=== PATIENT | male | born 1990 | race Caucasian/White ===

== ENCOUNTER 2016-12-27 13:31 | Day surgery (SDC) | payer OTHER ==
[~2016-12-27] VITALS: Ht 175.3 cm; Wt 81.7 kg
[~2016-12-27 13:31] MED LIST: 0.9% Sodium Chloride 1,000 ML IV PRN; HYDR25TA4 PO; LISI40TA PO; NAPR500T PO; OMEP40CA36 PO; SUCR1TAB30 PO; Sodium Chloride LOK Flush 10 mL Syringe IV PRN; fentaNYL-PF 50 mCg/mL 2 mL Inj IVPUSH PRN
[2016-12-27] MEDS ORDERED: Propofol 10,000 mCg/mL 20 mL Inj ONE (13:32)
[2016-12-27] MEDS ORDERED: Lidocaine PF 1% 30 mL Inj ONE (13:32)
[2016-12-27 14:57] VITALS: BP 129/77; PULSE 59; RESP 14; O2SAT 98
[2016-12-27] MEDS ORDERED: Lactated Ringer's 1,000 ML IV SCH (15:24)
[2016-12-27] MEDS ORDERED: Lactated Ringer's 1,000 ML IV ONE (15:24)
[2016-12-27] MEDS ORDERED: MetoCLOpramide 5 mg/mL 2 mL Inj IVPUSH PRN (15:25)
[2016-12-27] MEDS ORDERED: Ondansetron 2 mg/mL 2 mL Inj IVPUSH PRN (15:25)
--- NOTE | 2016-12-27 15:35 | PCM.HPANE ---
Patient Data Date of Service: Dec 27, 2016 Surgeon Admitting Provider: Attending Provider:Franco Nicholas MD Primary Care Physician:Shamar Schwarz PA-C Other Provider: Reason for Visit Dysphagia Ht/WT & BMI Height (Feet): 5 Height (Inches): 9 Weight (Kilograms): 81.65 Body Mass Index 26.00 Allergies Coded Allergies: No Known Allergies (Verified Allergy, Unknown, 12/27/16) Past Anesthesia History Anesthesia History: Positive for:: Anesthesia Reactions (WOKE UP DURING ANESHTESIA), Denies:: Abnormal Airway, Difficult Intubation, Fam Anesthesia Reaction, Fam Malignant Hypertherm, Malignant Hyperthermia Diabetes History Hx Diabetes?: No MRSA MRSA: No Medications Home Meds Incl Beta Louann: No Reported Medications Sucralfate (Carafate)1 Gm Tablet1 Gm PO QID Ref 0 12/24/16 Omeprazole 40 Mg Capsule.dr40 Mg PO BID Ref 0 12/24/16 Lisinopril 40 Mg [id number] Mg PO DAILY 30 Days Ref 0 03/24/15 Hydrochlorothiazide 25 Mg [id number] Mg PO DAILY 30 Days Ref 0 03/24/15 Discontinued Scripts Naproxen (Naprosyn)500 Mg Colyvl071 Mg PO BID PRN For Pain #60 TABLET Ref 0 Prov:Sierra Vaughan DO 02/02/16 History History of ENT Problems?: Yes HEENT History: Positive for:: Dysphagia Denies:: Abnormal Airway Difficult Intubation Hearing Problem Hx of Heart Problems?: Yes Cardiovascular History: Positive for:: Hypertension Denies:: AICD Atrial Fibrillation Chest Pain Congestive Heart Failure Pacemaker Valvular Heart Disease Hx of Respiratory Problem?: No Respiratory History: Denies:: Tuberculosis Hx Neurologic Problems?: No Neurological History: Denies:: CVA Hx of GI Problems?: Yes Gastrointestinal History: Denies:: Cirrhosis Diverticulitis Gall Bladder Disease Gastroesphageal Reflux Hiatal Hernia Liver Disease Rectal Bleeding Hx of Problems?: No HX of Peritoneal Dialysis: No Hx Musculoskeletal Problems?: No Musculoskeletal History: Denies:: Fibromyalgia Joint Replacement Hx of Psycho/Social Problems?: Yes Psycho Social History: Positive for:: Anxiety Denies:: Hx Depression Suicide Attempt Hx Surgeries?: Yes (CIRCUMCISION AT 89) Hx Any Other Health Problems?: Yes Hx Diabetes: No Hx Alcohol Use: NoHx Substance Use: No (hx of heroin, marijuana) Smoking Status: Current Every Day Smoker Stop/Bang Treated for Sleep Apnea?: No S-Snoring: Do You Snore Loudly: Yes T-Tired: feel tired, fatigued: No O-Obsered: Observed not breath: No P-Blood Pressure: treated: Yes B- Body Mass Index > 35 kg/m2: No A- Age over 50: No N- Neck Large Circumference: No G- Gender Male: Yes KAMILLE Total Score: 3 KAMILLE Risk Assessment: High Risk, =/>3 Yes KAMILLE Category 4 OutPt Procedure: Yes Risk Assessment Category Category 1A: Patient has history of documented sleep apnea, and HAS NOT received any narcotic, sedative or anesthesia administration during this stay. Category 1B: Patient has history of documented sleep apnea, and HAS received any narcotic , sedative or anesthesia administration during this stay Category 2: Patient has SUSPECTED Obstructive Sleep Apnea, and HAS received any narcotic , sedative or anesthesia administration during this stay. Category 3: Patient has SUSPECTED Obstructive Sleep Apnea and HAS NOT received narcotic, sedative or anesthesia administration during this stay. Category 4: Outpatient in Procedural Areas with known sleep apnea or who screen positive for High Risk via the STOP/BANG questionnaire. Exam Exam Vital Signs Vital Signs Date Time Temp Pulse Resp B/P Pulse Ox O2 Delivery O2 Flow Rate FiO2 12/27/16 14:57 59 14 129/77 98 Room Air General Appearance: Alert, Oriented X3, Cooperative HEENT/AIRWAY: MP 1, Neck Movement (Full), Mouth Opening (Wide) Lungs: Clear to Auscultation, Normal Air Movement Heart: Regular Rate/Rhythm, Normal S1, Normal S2 Plan Impression Patient chart reviewed, patient interviewed and anesthestic plan with risks, benefits, and alternatives discussed, and informed consent obtained. NPO Status: > 8 hours ASA Physical Status: ASA2 Plus Emergency Anesthetic Plan: MAC Bene/Risks/Altern/Consents: Yes HP Complete Prior to Induction: Yes Hu Jim MD Dec 27, 2016 15:24
--- NOTE | 2016-12-27 16:10 | PCM.ENDEGD ---
EGD Date of Service: Dec 27, 2016 Physician Franco Nicholas MD Pre Procedure Diagnosis: Dysphagia Post Procedure Dx & Findings: Esophagitis Procedure Esophagogastroduodenoscopy PROCEDURE IN DETAIL: After proper sedation, Olympus video endoscope was inserted into patient's mouth and esophagus was successfully intubated. Scope introduced esophagus. Esophagus showed normal shiny whitish mucosa consistent with squamous cell component. Z line was not intact at 40 cm from the incisors. One spot appeared to be red edema is consistent with inflammation. Biopsy obtained. Stomach further events to the stomach. Stomach showed normal shiny mucosa with normal appearing rugae folds without any ulcer mass erosion. Cardia fundus body antrum pylorus were all visualized. Retroflexion was done. Stomach was easily inflated and deflatable using air. Scope further events to the distal duodenum. Duodenum revealed normal villous structures with normal appearing folds without any mass ulcer erosion. Impression Esophagitis Recommendation Decrease Prilosec to 40 mg once a day Presedation Assessment Risks and Benefits Informed consent was obtained from the patient after all risks and benefits including but not limited to drug reaction, infection, pain, bleeding, perforation, as well as alternatives were discussed. Patient monitoring Continuous pulse oximetry, cardiac monitoring, blood pressure monitoring, IV access, and oxygen at 2L per nasal cannula. Complications There were no periprocedural complications identified. Post Procedure Plan Post Procedure Recommendations 1. Restrict activities today. 2. Resume normal activities in the morning. 3. Resume medications. 4. GERD behavioral modification: - Avoid fatty, acidic, spicy, large meals - Do not lie down after meals - Do not eat or drink anything for at least 2 1/2 hours before going to bed at night - Discontinue tobacco and alcohol - Decrease or avoid caffeine - Avoid chocolate and mints - Decrease weight - Avoid aspirin and non steroidal anti-inflammatory agents (NSAID) such as Aleve, Advil, Mobic, Naproxen, Ibuprofen, etc 5. Add proton pump inhibitor. Take 30 minutes before 1st meal of the day. 6. Patient informed of normal post procedure side effects as bloating, drowsiness, blood streaking in the stool 7. If gastric biopsy reveal H.pylori, continue with appropriate treatment 8. If small bowel biopsy reveals celiac, continue with appropriate treatment 9. Please don't hesitate to call me with any questions Franco Nicholas MD Dec 27, 2016 16:10
[2016-12-27 16:14] VITALS: BP 153/106; PULSE 82; RESP 16; O2SAT 95
--- NOTE | 2016-12-27 16:15 | PCM.ANEP1 ---
Post Anesthesia Phase 1 PACU Phase 1 Assessment Date of Service: Dec 27, 2016 Vital Signs PACU 153/106, HR 85, O2 99% RA, RR 20 Vital Signs Date Time Temp Pulse Resp B/P Pulse Ox O2 Delivery O2 Flow Rate FiO2 12/27/16 14:57 59 14 129/77 98 Room Air Anesthetic Administered: MAC Level of Alertness: Awake, talking ARAUZ's with Equal Strength: Yes Pain: No Oxygen Delivery: Room Air Lungs: Normal Air Movement Hu Jim MD Dec 27, 2016 16:15
--- NOTE | 2016-12-27 16:16 | PCM.ANEP2 ---
Post Anesthesia Evaluation ASA/CMS Post Anesthesia Date of Service: Dec 27, 2016 VS in Patient's Normal Range?: Yes Resp Stable; Airway Patent?: Yes CV Function & Hydration Stable: Yes Mental Status Recovered?: Yes Pain control Satisfactory?: Yes N/V Control Satisfactory?: Yes Hu Jim MD Dec 27, 2016 16:16
[2016-12-27 16:24] VITALS: BP 154/86; PULSE 80; RESP 16; O2SAT 100
--- NOTE | 2016-12-29 14:49 | PATH ---
SURGICAL PATHOLOGY Attending Physician:Franco Nicholas M.D. CASE STATUS: Signed Out PATIENT NAME: STEPHEN MANN PID: [id number] : 1990 DATE COLLECTED:12/27/2016 00:00 SPECIMEN: Esophagus, Biopsy CLINICAL HISTORY: DISTAL ESOPHAGUS FINAL DIAGNOSIS: Distal Esophagus, Biopsy: Squamocolumnar junctional mucosa with no diagnostic abnormality. Negative for intestinal metaplasia. Negative for dysplasia and malignancy. ICD10 R10.13 GROSS DESCRIPTION: The specimen is received in one formalin filled container labeled with the patient's name, sublabeled "distal esophagus" and consists of a 0.3 x 0.2 x 0.2 CM portion of tissue which is entirely submitted in one cassette. 12/28/2016 [facility] ICD-9 CODES: CPT CODES: 1: 94266 Electronically Signed Out Lavinia Ha MD [facility] [address], [place] [address] Technical component performed at [facility], [facility] [address], [address]
== END 2016-12-27 23:59 | disposition home or self-care (01) ==
LOC: END 13:31
PROVIDERS: ATTEND Internal Medicine
DX: K20.9 Esophagitis, unspecified (principal); I10 Essential (primary) hypertension; D75.1 Secondary polycythemia; F45.8 Other somatoform disorders; F41.9 Anxiety disorder, unspecified; F17.210 Nicotine dependence, cigarettes, uncomplicated